=== PATIENT | male | born 1940 | race Caucasian/White ===

== ENCOUNTER 2016-09-28 09:41 | Outpatient (CLI) | payer MEDICARE ==
[2016-09-28 09:59] LABS: #Basophils 0.1 thou/uL (0.0-0.2); #Eosinphils 0.3 thou/uL (0.0-0.7); #Lymphocytes 1.9 thou/uL (1.20-3.40); #Monocytes 0.6 thou/uL (0.11-0.59); #Neutrophils 5.7 thou/uL (1.40-6.50); %Basophils 0.9 % (0.0-1.0); %Lymphocytes 22.6 % (21.0-51.0); %Monocytes 7.2 % (0.0-10.0); %Neutrophils 66.3 % (42.0-75.0); Hemoglobin 14.5 g/dL (14.0-18.0); Mean Corpuscular HGB CONC 32.6 g/dL (32.0-36.0); Mean Corpuscular Hemoglobin 30.7 pg (27.0-31.0); Mean Corpuscular Volume 94.1 fl (80.0-94.0); Mean Platelet Volume 9.6 fL (7.4-10.4); Platelet Count 188 thou/uL (130-400); RBC Distribution Width 12.4 % (11.5-14.5); White Blood Cell (WBC) Count 8.5 thou/uL (4.8-10.8)
[2016-09-28 10:14] LABS: ALT (SGPT) 18 U/L (0-55); AST (SGOT) 16 U/L (5-34); Albumin 4.2 g/dL (3.4-4.8); Alkaline Phosphatase 95 U/L (40-150); Anion Gap 18 mmol/L (10-20); BUN (Urea Nitrogen) 11 mg/dL (8.4-25.7); Bilirubin, Total 0.6 mg/dL (0.2-1.2); Calc. Creatinine Clearance 0 mL/min (70-130); Calcium 9.6 mg/dL (7.8-10.44); Carbon Dioxide 21 mmol/L (23-31); Cardiac Risk 3.3 (Less than 4.5); Chloride 109 mmol/L (98-107); Cholesterol 122 mg/dL (< 200 Desired); Estimated GFR-MDRD 79; Glucose 124 mg/dL (83-110); HDL Cholesterol 37 mg/dL (>60 Neg Risk); LDL Cholesterol, Calculated 63 mg/dL; Potassium 4.5 mmol/L (3.5-5.1); Protein, Total 7.2 g/dL (5.8-8.1); Sodium 143 mmol/L (136-145); Triglycerides 110 mg/dL (Less than 150)
[2016-09-28 10:36] LABS: Free T4 (Free Thyroxine) 0.87 ng/dL (0.70-1.48); Thyroid Stimulating Hormone 2.7711 uIU/mL (0.35-4.94)
[2016-09-28 19:19] LABS: Creatinine, Urine 102.21 mg/dL (63-166); Microalbumin Urine Less than 1.0 mg/dL (0.5-50.0); Microalbumin/Creat Ratio 9.8 mg/g (Less than 30)
== END 2016-09-28 09:42 | disposition home or self-care (01) ==
LOC: MADLABBHPM 09:41
PROVIDERS: ATTEND Internal Medicine Cardiovascular Disease
DX: E11.9 Type 2 diabetes mellitus without complications (principal)
CPT/HCPCS: 36415; 80053; 80061; 82043; 83036; 84439; 84443; 85025

== ENCOUNTER 2017-09-07 14:52 | Outpatient (CLI) | payer MEDICARE ==
[2017-09-07 15:01] LABS: #Basophils 0.1 thou/uL (0.0-0.2); #Eosinphils 0.3 thou/uL (0.0-0.7); #Lymphocytes 1.8 thou/uL (1.20-3.40); #Monocytes 0.6 thou/uL (0.11-0.59); #Neutrophils 4.8 thou/uL (1.40-6.50); %Basophils 0.9 % (0.0-1.0); %Eosinophils 4.1 % (0.0-10.0); %Lymphocytes 23.9 % (21.0-51.0); %Monocytes 7.3 % (0.0-10.0); %Neutrophils 63.8 % (42.0-75.0); Hemoglobin 11.7 g/dL (14.0-18.0); Mean Corpuscular HGB CONC 30.5 g/dL (32.0-36.0); Mean Corpuscular Hemoglobin 27.7 pg (27.0-31.0); Mean Corpuscular Volume 90.9 fl (80.0-94.0); Mean Platelet Volume 8.3 fL (7.4-10.4); Platelet Count 227 thou/uL (130-400); Red Blood Cell (RBC) Count 4.22 mill/uL (4.70-6.10); White Blood Cell (WBC) Count 7.6 thou/uL (4.8-10.8)
[2017-09-07 15:15] LABS: ALT (SGPT) 9 U/L (8-55); AST (SGOT) 11 U/L (5-34); Albumin 3.9 g/dL (3.4-4.8); Alkaline Phosphatase 142 U/L (40-150); Anion Gap 16 mmol/L (10-20); BUN (Urea Nitrogen) 12 mg/dL (8.4-25.7); Bilirubin, Total 0.4 mg/dL (0.2-1.2); Calc. Creatinine Clearance 0 mL/min (70-130); Calcium 9.3 mg/dL (7.8-10.44); Carbon Dioxide 22 mmol/L (23-31); Chloride 110 mmol/L (98-107); Estimated GFR-MDRD 90; Globulin 3.2 g/dL (2.4-3.5); Glucose 136 mg/dL (83-110); Potassium 4.3 mmol/L (3.5-5.1); Protein, Total 7.1 g/dL (5.8-8.1); Sodium 144 mmol/L (136-145)
[2017-09-07 20:15] LABS: Hemoglobin A1c 6.8 % (4.0-6.0)
== END 2017-09-07 14:53 | disposition home or self-care (01) ==
LOC: MADLABBHPM 14:52
PROVIDERS: ATTEND Family Medicine
DX: T84.020D Dislocation of internal right hip prosthesis, subsequent encounter (principal); E11.9 Type 2 diabetes mellitus without complications
CPT/HCPCS: 36415; 80053; 83036; 85025

== ENCOUNTER 2017-11-15 14:16 | Inpatient (IN) | payer MEDICARE ==
[2017-11-15] MEDS ORDERED: levETIRAcetam 500 MG TAB PO SCH (15:15)
[2017-11-15] MEDS ORDERED: HYDROcodone/Acetaminophen 5/325 mg Tablet PO SCH (19:00)
[2017-11-15] MEDS ORDERED: Polyethylene Glycol 3350 17 GM Packet PO PRN (19:18)
[2017-11-15] MEDS ORDERED: Dextrose 50% Abboject 50 ML SYRINGE SLOW IVP PRN (19:19)
[2017-11-15] MEDS ORDERED: Dextrose 5% in Water 1,000 ML IV PRN (19:19)
[2017-11-15] MEDS: Ferrous Sulfate 325 MG TAB PO SCH (19:47)
[2017-11-15] MEDS: levETIRAcetam 500 MG TAB PO SCH (19:48)
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
[2017-11-16] MEDS: metFORMIN 500 MG TAB PO SCH ×2 (08:41→16:39)
[2017-11-16] MEDS: Tamsulosin HCl 0.4 MG CAP PO SCH (08:41)
[2017-11-16] MEDS: Atorvastatin Calcium 10 MG TAB PO SCH (08:42)
[2017-11-16] MEDS: levETIRAcetam 500 MG TAB PO SCH ×3 (08:42→20:54)
[2017-11-16] MEDS: glipiZIDE 5 MG TAB PO SCH (08:42)
[2017-11-16] MEDS: Aspirin 81 mg Enteric Coated Tablet PO SCH (08:42)
[2017-11-16] MEDS: Ferrous Sulfate 325 MG TAB PO SCH ×2 (08:45→20:55)
[2017-11-17] MEDS: metFORMIN 500 MG TAB PO SCH ×2 (08:06→16:47)
[2017-11-17] MEDS: glipiZIDE 5 MG TAB PO SCH (08:06)
[2017-11-17] MEDS: Aspirin 81 mg Enteric Coated Tablet PO SCH (09:26)
[2017-11-17] MEDS: Ferrous Sulfate 325 MG TAB PO SCH ×2 (09:26→20:03)
[2017-11-17] MEDS: levETIRAcetam 500 MG TAB PO SCH ×3 (09:27→20:03)
[2017-11-17] MEDS: Tamsulosin HCl 0.4 MG CAP PO SCH (09:27)
[2017-11-17] MEDS: Atorvastatin Calcium 10 MG TAB PO SCH (09:31)
[2017-11-18] MEDS: metFORMIN 500 MG TAB PO SCH ×2 (07:38→17:42)
[2017-11-18] MEDS: glipiZIDE 5 MG TAB PO SCH (07:38)
[2017-11-18] MEDS: Atorvastatin Calcium 10 MG TAB PO SCH (08:48)
[2017-11-18] MEDS: Aspirin 81 mg Enteric Coated Tablet PO SCH (08:48)
[2017-11-18] MEDS: Ferrous Sulfate 325 MG TAB PO SCH ×2 (08:50→20:28)
[2017-11-18] MEDS: Tamsulosin HCl 0.4 MG CAP PO SCH (08:51)
[2017-11-18] MEDS: levETIRAcetam 500 MG TAB PO SCH ×3 (08:51→20:28)
[2017-11-18] MEDS ORDERED: Ondansetron ODT 4 MG TAB PO SCH (22:00)
[2017-11-19] MEDS: glipiZIDE 5 MG TAB PO SCH (07:20)
[2017-11-19] MEDS: Aspirin 81 mg Enteric Coated Tablet PO SCH (08:37)
[2017-11-19] MEDS: metFORMIN 500 MG TAB PO SCH ×2 (08:37→16:55)
[2017-11-19] MEDS: levETIRAcetam 500 MG TAB PO SCH ×3 (08:37→20:12)
[2017-11-19] MEDS: Ferrous Sulfate 325 MG TAB PO SCH ×2 (08:38→20:12)
[2017-11-19] MEDS: Atorvastatin Calcium 10 MG TAB PO SCH (08:38)
[2017-11-19] MEDS: Tamsulosin HCl 0.4 MG CAP PO SCH (08:42)
[2017-11-20] MEDS: metFORMIN 500 MG TAB PO SCH ×2 (08:46→17:00)
[2017-11-20] MEDS: Ferrous Sulfate 325 MG TAB PO SCH ×2 (08:46→20:18)
[2017-11-20] MEDS: levETIRAcetam 500 MG TAB PO SCH ×3 (08:46→20:18)
[2017-11-20] MEDS: Tamsulosin HCl 0.4 MG CAP PO SCH (08:46)
[2017-11-20] MEDS: Aspirin 81 mg Enteric Coated Tablet PO SCH (08:46)
[2017-11-20] MEDS: glipiZIDE 5 MG TAB PO SCH (08:46)
[2017-11-20] MEDS: Atorvastatin Calcium 10 MG TAB PO SCH (08:46)
[2017-11-21] MEDS: glipiZIDE 5 MG TAB PO SCH (06:59)
[2017-11-21] MEDS: metFORMIN 500 MG TAB PO SCH ×2 (08:07→16:55)
[2017-11-21] MEDS: Ferrous Sulfate 325 MG TAB PO SCH ×2 (08:07→20:55)
[2017-11-21] MEDS: levETIRAcetam 500 MG TAB PO SCH ×3 (08:08→20:55)
[2017-11-21] MEDS: Aspirin 81 mg Enteric Coated Tablet PO SCH (08:08)
[2017-11-21] MEDS: Atorvastatin Calcium 10 MG TAB PO SCH (08:08)
[2017-11-21] MEDS: Tamsulosin HCl 0.4 MG CAP PO SCH (08:08)
[2017-11-22 05:18] LABS: Eosinophils 2 % (0-10); Hemoglobin 10.9 g/dL (14.0-18.0); Lymphocytes 17 % (21-51); MDiff Complete? YES; Mean Corpuscular HGB CONC 32.4 g/dL (32.0-36.0); Mean Corpuscular Hemoglobin 28.7 pg (27.0-31.0); Mean Corpuscular Volume 88.5 fl (80.0-94.0); Mean Platelet Volume 6.7 fL (7.4-10.4); Monocytes 7 % (0-10); Neutrophil 71 % (42-75); PLT Morphology Comment Appears Adequate; Platelet Count 318 thou/uL (130-400); RBC Distribution Width 14.9 % (11.5-14.5); Reactive Lymphocytes 3 % (0-10); White Blood Cell (WBC) Count 9.1 thou/uL (4.8-10.8)
[2017-11-22 05:25] LABS: ALT (SGPT) 13 U/L (8-55); AST (SGOT) 10 U/L (5-34); Albumin 3.4 g/dL (3.4-4.8); Alkaline Phosphatase 111 U/L (40-150); Anion Gap 15 mmol/L (10-20); BUN (Urea Nitrogen) 15 mg/dL (8.4-25.7); Bilirubin, Total 0.5 mg/dL (0.2-1.2); Calc. Creatinine Clearance 86 mL/min (70-130); Calcium 9.3 mg/dL (7.8-10.44); Carbon Dioxide 21 mmol/L (23-31); Chloride 112 mmol/L (98-107); Estimated GFR-MDRD 88; Globulin 3.1 g/dL (2.4-3.5); Glucose 113 mg/dL (83-110); Potassium 4.4 mmol/L (3.5-5.1); Protein, Total 6.5 g/dL (5.8-8.1); Sodium 144 mmol/L (136-145)
[2017-11-22] MEDS: Tamsulosin HCl 0.4 MG CAP PO SCH (08:48)
[2017-11-22] MEDS: levETIRAcetam 500 MG TAB PO SCH ×3 (08:49→20:59)
[2017-11-22] MEDS: Ferrous Sulfate 325 MG TAB PO SCH ×2 (08:49→20:59)
[2017-11-22] MEDS: Aspirin 81 mg Enteric Coated Tablet PO SCH (08:49)
[2017-11-22] MEDS: Atorvastatin Calcium 10 MG TAB PO SCH (08:49)
[2017-11-22] MEDS: metFORMIN 500 MG TAB PO SCH ×2 (08:49→17:11)
[2017-11-22] MEDS: glipiZIDE 5 MG TAB PO SCH (08:49)
[2017-11-23] MEDS: glipiZIDE 5 MG TAB PO SCH (07:30)
[2017-11-23] MEDS: metFORMIN 500 MG TAB PO SCH ×2 (08:50→17:27)
[2017-11-23] MEDS: Atorvastatin Calcium 10 MG TAB PO SCH (08:50)
[2017-11-23] MEDS: Aspirin 81 mg Enteric Coated Tablet PO SCH (08:50)
[2017-11-23] MEDS: Ferrous Sulfate 325 MG TAB PO SCH ×2 (08:53→20:40)
[2017-11-23] MEDS: Tamsulosin HCl 0.4 MG CAP PO SCH (08:53)
[2017-11-23] MEDS: levETIRAcetam 500 MG TAB PO SCH ×3 (08:53→20:39)
[2017-11-23] MEDS: HYDROcodone/Acetaminophen 5/325 mg Tablet PO PRN (23:41)
[2017-11-24] MEDS: Atorvastatin Calcium 10 MG TAB PO SCH (09:15)
[2017-11-24] MEDS: Aspirin 81 mg Enteric Coated Tablet PO SCH (09:16)
[2017-11-24] MEDS: metFORMIN 500 MG TAB PO SCH ×2 (09:16→17:08)
[2017-11-24] MEDS: levETIRAcetam 500 MG TAB PO SCH ×3 (09:16→20:41)
[2017-11-24] MEDS: Ferrous Sulfate 325 MG TAB PO SCH ×2 (09:16→20:42)
[2017-11-24] MEDS: glipiZIDE 5 MG TAB PO SCH (09:16)
[2017-11-24] MEDS: Tamsulosin HCl 0.4 MG CAP PO SCH (09:16)
[2017-11-25] MEDS: HYDROcodone/Acetaminophen 5/325 mg Tablet PO PRN (03:50)
[2017-11-25] MEDS: Tamsulosin HCl 0.4 MG CAP PO SCH (08:22)
[2017-11-25] MEDS: glipiZIDE 5 MG TAB PO SCH (08:22)
[2017-11-25] MEDS: Atorvastatin Calcium 10 MG TAB PO SCH (08:22)
[2017-11-25] MEDS: Aspirin 81 mg Enteric Coated Tablet PO SCH (08:22)
[2017-11-25] MEDS: levETIRAcetam 500 MG TAB PO SCH ×3 (08:23→20:18)
[2017-11-25] MEDS: metFORMIN 500 MG TAB PO SCH ×2 (08:23→17:04)
[2017-11-25] MEDS: Ferrous Sulfate 325 MG TAB PO SCH ×3 (08:23→20:20)
[2017-11-25] MEDS ORDERED: Polyethylene Glycol 3350 17 GM Packet PO PRN (13:15)
[2017-11-26] MEDS: Ferrous Sulfate 325 MG TAB PO SCH ×2 (08:13→20:26)
[2017-11-26] MEDS: Aspirin 81 mg Enteric Coated Tablet PO SCH (08:14)
[2017-11-26] MEDS: Tamsulosin HCl 0.4 MG CAP PO SCH (08:14)
[2017-11-26] MEDS: metFORMIN 500 MG TAB PO SCH ×2 (08:15→17:30)
[2017-11-26] MEDS: glipiZIDE 5 MG TAB PO SCH (08:15)
[2017-11-26] MEDS: Atorvastatin Calcium 10 MG TAB PO SCH (08:16)
[2017-11-26] MEDS: levETIRAcetam 500 MG TAB PO SCH ×3 (08:16→20:23)
[2017-11-26] MEDS: HumaLOG 300 UNITS/3 ML VIAL SC PRN (16:43)
[2017-11-26] MEDS ORDERED: HumaLOG 300 UNITS/3 ML VIAL SC PRN (20:44)
[2017-11-26] MEDS: Acetaminophen 325 MG TAB PO PRN (22:18)
[2017-11-27] MEDS: Atorvastatin Calcium 10 MG TAB PO SCH (08:13)
[2017-11-27] MEDS: metFORMIN 500 MG TAB PO SCH ×2 (08:13→16:35)
[2017-11-27] MEDS: glipiZIDE 5 MG TAB PO SCH (08:13)
[2017-11-27] MEDS: Aspirin 81 mg Enteric Coated Tablet PO SCH (08:13)
[2017-11-27] MEDS: Ferrous Sulfate 325 MG TAB PO SCH ×2 (08:14→21:27)
[2017-11-27] MEDS: Tamsulosin HCl 0.4 MG CAP PO SCH (08:14)
[2017-11-27] MEDS: levETIRAcetam 500 MG TAB PO SCH ×3 (08:14→21:27)
[2017-11-28] MEDS: glipiZIDE 5 MG TAB PO SCH (07:35)
[2017-11-28] MEDS: Aspirin 81 mg Enteric Coated Tablet PO SCH (08:17)
[2017-11-28] MEDS: Ferrous Sulfate 325 MG TAB PO SCH ×2 (08:17→20:26)
[2017-11-28] MEDS: levETIRAcetam 500 MG TAB PO SCH ×3 (08:17→20:25)
[2017-11-28] MEDS: Tamsulosin HCl 0.4 MG CAP PO SCH (08:17)
[2017-11-28] MEDS: metFORMIN 500 MG TAB PO SCH ×2 (08:18→16:36)
[2017-11-28] MEDS: Atorvastatin Calcium 10 MG TAB PO SCH (08:18)
[2017-11-29] MEDS: Acetaminophen 325 MG TAB PO PRN ×2 (00:15→22:05)
[2017-11-29] MEDS: glipiZIDE 5 MG TAB PO SCH (08:31)
[2017-11-29] MEDS: Tamsulosin HCl 0.4 MG CAP PO SCH (08:31)
[2017-11-29] MEDS: Aspirin 81 mg Enteric Coated Tablet PO SCH (08:31)
[2017-11-29] MEDS: Atorvastatin Calcium 10 MG TAB PO SCH (08:32)
[2017-11-29] MEDS: Ferrous Sulfate 325 MG TAB PO SCH ×2 (08:32→20:33)
[2017-11-29] MEDS: metFORMIN 500 MG TAB PO SCH ×2 (08:32→17:04)
[2017-11-29] MEDS: levETIRAcetam 500 MG TAB PO SCH ×3 (08:32→20:33)
[2017-11-30] MEDS: levETIRAcetam 500 MG TAB PO SCH ×3 (08:21→20:43)
[2017-11-30] MEDS: Ferrous Sulfate 325 MG TAB PO SCH ×2 (08:21→20:43)
[2017-11-30] MEDS: glipiZIDE 5 MG TAB PO SCH (08:21)
[2017-11-30] MEDS: HumaLOG 300 UNITS/3 ML VIAL SC PRN (08:22)
[2017-11-30] MEDS: metFORMIN 500 MG TAB PO SCH ×2 (08:22→17:09)
[2017-11-30] MEDS: Tamsulosin HCl 0.4 MG CAP PO SCH (08:22)
[2017-11-30] MEDS: Atorvastatin Calcium 10 MG TAB PO SCH (08:22)
[2017-11-30] MEDS: Aspirin 81 mg Enteric Coated Tablet PO SCH (08:22)
[2017-11-30] MEDS: Acetaminophen 325 MG TAB PO PRN (20:43)
[2017-12-01] MEDS: HumaLOG 300 UNITS/3 ML VIAL SC PRN (07:25)
[2017-12-01] MEDS: metFORMIN 500 MG TAB PO SCH ×2 (07:26→17:00)
[2017-12-01] MEDS: glipiZIDE 5 MG TAB PO SCH (07:26)
[2017-12-01] MEDS: Aspirin 81 mg Enteric Coated Tablet PO SCH (08:52)
[2017-12-01] MEDS: Atorvastatin Calcium 10 MG TAB PO SCH (08:52)
[2017-12-01] MEDS: Ferrous Sulfate 325 MG TAB PO SCH ×2 (08:53→20:22)
[2017-12-01] MEDS: Tamsulosin HCl 0.4 MG CAP PO SCH (08:54)
[2017-12-01] MEDS: levETIRAcetam 500 MG TAB PO SCH ×3 (08:54→20:22)
[2017-12-02] MEDS: Acetaminophen 325 MG TAB PO PRN (01:16)
[2017-12-02] MEDS: metFORMIN 500 MG TAB PO SCH ×2 (07:21→17:00)
[2017-12-02] MEDS: glipiZIDE 5 MG TAB PO SCH (07:21)
[2017-12-02] MEDS: Aspirin 81 mg Enteric Coated Tablet PO SCH (08:44)
[2017-12-02] MEDS: Atorvastatin Calcium 10 MG TAB PO SCH (08:44)
[2017-12-02] MEDS: Ferrous Sulfate 325 MG TAB PO SCH ×2 (08:45→20:14)
[2017-12-02] MEDS: Tamsulosin HCl 0.4 MG CAP PO SCH (08:46)
[2017-12-02] MEDS: levETIRAcetam 500 MG TAB PO SCH ×3 (08:46→20:14)
[2017-12-03] MEDS: Atorvastatin Calcium 10 MG TAB PO SCH (08:24)
[2017-12-03] MEDS: Aspirin 81 mg Enteric Coated Tablet PO SCH (08:24)
[2017-12-03] MEDS: glipiZIDE 5 MG TAB PO SCH (08:24)
[2017-12-03] MEDS: metFORMIN 500 MG TAB PO SCH ×2 (08:24→17:29)
[2017-12-03] MEDS: Ferrous Sulfate 325 MG TAB PO SCH ×2 (08:25→20:36)
[2017-12-03] MEDS: Tamsulosin HCl 0.4 MG CAP PO SCH (08:25)
[2017-12-03] MEDS: levETIRAcetam 500 MG TAB PO SCH ×3 (08:25→20:36)
[2017-12-03] MEDS: HumaLOG 300 UNITS/3 ML VIAL SC PRN (11:39)
[2017-12-03 19:13] VITALS: BMI 24.7
[2017-12-04] MEDS: Atorvastatin Calcium 10 MG TAB PO SCH (08:23)
[2017-12-04] MEDS: levETIRAcetam 500 MG TAB PO SCH ×3 (08:24→20:28)
[2017-12-04] MEDS: glipiZIDE 5 MG TAB PO SCH (08:24)
[2017-12-04] MEDS: metFORMIN 500 MG TAB PO SCH ×2 (08:24→17:02)
[2017-12-04] MEDS: Aspirin 81 mg Enteric Coated Tablet PO SCH (08:24)
[2017-12-04] MEDS: Tamsulosin HCl 0.4 MG CAP PO SCH (08:24)
[2017-12-04] MEDS: Ferrous Sulfate 325 MG TAB PO SCH ×2 (08:25→20:28)
[2017-12-05] MEDS: levETIRAcetam 500 MG TAB PO SCH ×3 (08:01→20:16)
[2017-12-05] MEDS: Atorvastatin Calcium 10 MG TAB PO SCH (08:01)
[2017-12-05] MEDS: Aspirin 81 mg Enteric Coated Tablet PO SCH (08:01)
[2017-12-05] MEDS: Tamsulosin HCl 0.4 MG CAP PO SCH (08:01)
[2017-12-05] MEDS: metFORMIN 500 MG TAB PO SCH ×2 (08:01→17:10)
[2017-12-05] MEDS: Ferrous Sulfate 325 MG TAB PO SCH ×2 (08:01→20:16)
[2017-12-05] MEDS: glipiZIDE 5 MG TAB PO SCH (08:01)
[2017-12-06 06:53] VITALS: BP 120/56; TEMP 97.5
[2017-12-06] MEDS: glipiZIDE 5 MG TAB PO SCH (07:23)
[2017-12-06] MEDS: Atorvastatin Calcium 10 MG TAB PO SCH (08:06)
[2017-12-06] MEDS: Ferrous Sulfate 325 MG TAB PO SCH (08:07)
[2017-12-06] MEDS: Tamsulosin HCl 0.4 MG CAP PO SCH (08:07)
[2017-12-06] MEDS: Aspirin 81 mg Enteric Coated Tablet PO SCH (08:07)
[2017-12-06] MEDS: metFORMIN 500 MG TAB PO SCH (08:07)
[2017-12-06] MEDS: levETIRAcetam 500 MG TAB PO SCH (08:07)
--- NOTE | 2017-12-11 23:50 | DIS ---
DATE OF ADMISSION: 11/15/2017 DATE OF DISCHARGE: 12/06/2017 ATTENDING/PRIMARY CARE PHYSICIAN: Xena Perea M.D. ORTHOPEDIC: Mateo Romano M.D. REASON FOR ADMISSION: Skilled rehab in [facility] after total hip replacement. DISPOSITION: Home. CONDITION ON DISCHARGE: Stable. HOME MEDICATIONS: Aspirin 81 mg p.o. daily, atorvastatin 80 mg p.o. daily, ferrous sulfate 325 mg p.o. b.i.d., glipizide 5 mg before meals, metformin 500 mg p.o. b.i.d., and tamsulosin 0.4 mg p.o. daily. DIET: AHA diet. ACTIVITIES: Ad-christelle, to use rolling walker at all times. Fall precautions. FOLLOWUP: 1. Follow up with Dr. Perea in 1-2 weeks, sooner with concerns. 2. Follow up with Dr. Romano in 4 weeks or as previously scheduled. 3. Seizure precautions. 4. Fall precautions. 5. Follow up with [facility] Outpatient Therapy per request. FINAL DIAGNOSES: 1. Deconditioning. 2. Status post revision of right total hip replacement on 11/12/2017 secondary to posterior dislocation of the right hip with fracture of the posterior portion of the polyethylene liner. 3. Acute anemia secondary to blood loss, stable. 4. Unsteady gait. 5. History of falls. SECONDARY DIAGNOSES: 1. Diabetes, type 2, well controlled, non-insulin requiring. 2. Seizure disorder, stable. 3. Benign prostatic hypertrophy. 4. Hypoalbuminemia. HISTORY OF PRESENT ILLNESS AND HOSPITAL COURSE: Mr. Jett is a very pleasant 77-year-old male with history of diabetes, type 2; seizure disorder; BPH; and history of multiple previous right total hip replacement and revisions x2. The patient reports that after his last right total hip replacement and revision in 07/03/2017 secondary to redislocation of the right previous total hip replacement, he did fine at home after skilled rehab. He has been walking around without use of assistive device and no issues with pain. He was in his baseline functional activities until 11/11/2017. He reports that while at home he tried to stand up and had some significant right hip pain when he heard a clunk. Since then he was unable to walk and had significant pain. The patient was sent to the ER, where he was noted to have right hip prosthesis dislocation. He subsequently underwent revision of the right hip again this time replacing with a polyethylene liner, femoral head and reapplying constrained design with open reduction of the dislocation under general anesthesia. This was done by Dr. Romano. The patient had an unremarkable postoperative course. He was started on iron supplement for anemia secondary from acute blood loss. He has been ambulatory without significant pain on full weightbearing prior to transfer to [place]. During his rehab course, there was a report of marked right knee pain/leg pain. When patient was tried on [place], the patient had significant intolerance to the medications. The patient followed up with Dr. Romano 2 weeks after for staple removal. During that time, the patient received a steroid injection in his right knee and did well. His leg brace was likewise discontinued at that time and has been doing fine since. He was walking 400 feet x2 using rolling walker prior to discharge. Per therapy, the patient had almost reached his therapy goal, but not completely. Patient then was adamant to go home. He was offered to continue therapy at home versus outpatient therapy. The patient reports that he would rather have the outpatient therapy in [facility] as he was comfortable with the therapists here. Thus, outpatient therapy was scheduled prior to discharge. Vital signs prior to discharge, temperature 97.5, pulse 73, respirations 18, O2 sats 96%, and blood pressure 120/56. Weight 176 pounds and 12 ounces. Time spent on this discharge 32 minutes, on examining the patient and coordinating care. MIKKI
== END 2017-12-06 13:50 | disposition home or self-care (01) | DRG 560 ==
LOC: MADMS 14:16
PROVIDERS: ADMIT Family Medicine; ATTEND Family Medicine
DX: Z47.1 Aftercare following joint replacement surgery (principal); D62 Acute posthemorrhagic anemia; E88.09 Other disorders of plasma-protein metabolism, not elsewhere classified; E11.9 Type 2 diabetes mellitus without complications; D63.8 Anemia in other chronic diseases classified elsewhere; I48.2 Chronic atrial fibrillation; G40.909 Epilepsy, unspecified, not intractable, without status epilepticus; E78.5 Hyperlipidemia, unspecified; R53.1 Weakness; Z96.641 Presence of right artificial hip joint; N40.0 Benign prostatic hyperplasia without lower urinary tract symptoms; Z86.73 Personal history of transient ischemic attack (TIA), and cerebral infarction without residual deficits; Z85.820 Personal history of malignant melanoma of skin; I35.1 Nonrheumatic aortic (valve) insufficiency; I10 Essential (primary) hypertension; Z91.81 History of falling; Z88.8 Allergy status to other drugs, medicaments and biological substances; Z79.82 Long term (current) use of aspirin; Z79.84 Long term (current) use of oral hypoglycemic drugs; R26.81 Unsteadiness on feet; K25.9 Gastric ulcer, unspecified as acute or chronic, without hemorrhage or perforation; Z79.01 Long term (current) use of anticoagulants; Z66 Do not resuscitate
CPT/HCPCS: 36415; 36416; 80053; 80177; 85025; G8978-GP-CL; G8979-GP-CI; G8987-GO-CL; G8988-GO-CJ; Q0162

== ENCOUNTER 2018-02-26 12:03 | Outpatient (CLI) | payer MEDICARE ==
[2018-02-26 13:04] LABS: #Basophils 0.1 thou/uL (0.0-0.2); #Eosinphils 0.2 thou/uL (0.0-0.7); #Monocytes 0.7 thou/uL (0.11-0.59); #Neutrophils 4.8 thou/uL (1.40-6.50); %Basophils 0.7 % (0.0-1.0); %Eosinophils 3.1 % (0.0-10.0); %Lymphocytes 25.6 % (21.0-51.0); %Monocytes 8.6 % (0.0-10.0); %Neutrophils 62.1 % (42.0-75.0); Hemoglobin 12.4 g/dL (14.0-18.0); Mean Corpuscular HGB CONC 32.2 g/dL (32.0-36.0); Mean Corpuscular Hemoglobin 28.1 pg (27.0-31.0); Mean Corpuscular Volume 87.3 fL (78.0-98.0); Mean Platelet Volume 8.9 fL (7.4-10.4); Platelet Count 193 thou/uL (130-400); RBC Distribution Width 13.5 % (11.5-14.5); Red Blood Cell (RBC) Count 4.42 mill/uL (4.70-6.10); White Blood Cell (WBC) Count 7.7 thou/uL (4.8-10.8)
[2018-02-26 13:41] LABS: Thyroid Stimulating Hormone 2.5564 uIU/mL (0.35-4.94)
[2018-02-26 17:22] LABS: Ferritin 92.48 ng/mL (22-322)
== END 2018-02-26 12:04 | disposition home or self-care (01) ==
LOC: MADLABSP 12:03
PROVIDERS: ATTEND Family Medicine
DX: I35.2 Nonrheumatic aortic (valve) stenosis with insufficiency (principal); I10 Essential (primary) hypertension
CPT/HCPCS: 82728; 83540; 84443; 85025

== ENCOUNTER 2018-08-26 13:11 | Outpatient (CLI) | payer MEDICARE ==
[2018-08-26 13:35] LABS: #Basophils 0.1 thou/uL (0.0-0.2); #Eosinphils 0.2 thou/uL (0.0-0.7); #Lymphocytes 2.1 thou/uL (1.20-3.40); #Monocytes 0.6 thou/uL (0.11-0.59); #Neutrophils 5.9 thou/uL (1.40-6.50); %Basophils 0.7 % (0.0-1.0); %Eosinophils 1.8 % (0.0-10.0); %Lymphocytes 23.8 % (21.0-51.0); %Monocytes 7.2 % (0.0-10.0); %Neutrophils 66.4 % (42.0-75.0); Hemoglobin 14.5 g/dL (14.0-18.0); Mean Corpuscular HGB CONC 32.6 g/dL (32.0-36.0); Mean Corpuscular Hemoglobin 30.3 pg (27.0-31.0); Mean Corpuscular Volume 92.9 fL (78.0-98.0); Mean Platelet Volume 9.1 fL (7.4-10.4); Platelet Count 178 thou/uL (130-400); Red Blood Cell (RBC) Count 4.78 mill/uL (4.70-6.10); White Blood Cell (WBC) Count 8.8 thou/uL (4.8-10.8)
[2018-08-26 13:51] LABS: Cardiac Risk 3.4 (Less than 4.5)
[2018-08-26 21:38] LABS: Hemoglobin A1c 6.9 % (4.0-6.0)
== END 2018-08-26 13:12 | disposition home or self-care (01) ==
LOC: MADLABBHPM 13:11
PROVIDERS: ATTEND Family Medicine
DX: D62 Acute posthemorrhagic anemia (principal); E78.2 Mixed hyperlipidemia; E11.65 Type 2 diabetes mellitus with hyperglycemia
CPT/HCPCS: 36415; 80061; 83036; 83540; 85025

== ENCOUNTER 2020-07-27 09:28 | Outpatient (CLI) | payer MEDICARE ==
[2020-07-27 17:42] LABS: #Basophils 0.1 thou/uL (0.0-0.2); #Eosinphils 0.7 thou/uL (0.0-0.7); #Lymphocytes 2.1 thou/uL (1.20-3.40); #Monocytes 0.8 thou/uL (0.11-0.59); #Neutrophils 8.2 thou/uL (1.40-6.50); %Basophils 0.7 % (0.0-1.0); %Eosinophils 5.5 % (0.0-10.0); %Lymphocytes 17.9 % (21.0-51.0); %Monocytes 6.9 % (0.0-10.0); Hemoglobin 10.7 g/dL (14.0-18.0); Mean Corpuscular HGB CONC 30.9 g/dL (32.0-36.0); Mean Corpuscular Hemoglobin 26.3 pg (27.0-31.0); Mean Corpuscular Volume 85.1 fL (78.0-98.0); Mean Platelet Volume 7.1 fL (7.4-10.4); Platelet Count 328 thou/uL (130-400); RBC Distribution Width 14.8 % (11.5-14.5); Red Blood Cell (RBC) Count 4.06 mill/uL (4.70-6.10); White Blood Cell (WBC) Count 11.9 thou/uL (4.8-10.8)
[2020-07-27 19:10] LABS: Iron 40 ug/dL (65-175); Iron Binding Capacity, Total 218 mcg/dL (261-462)
== END 2020-07-27 09:29 | disposition home or self-care (01) ==
LOC: MADLABBHPM 09:28
PROVIDERS: ATTEND Family Medicine
DX: D50.9 Iron deficiency anemia, unspecified (principal)
CPT/HCPCS: 36415; 82728; 83540; 83550; 85025

== ENCOUNTER 2023-07-26 11:25 | Outpatient (CLI) | payer MEDICARE ==
[2023-07-26 11:44] LABS: #Eosinphils 0.1 thou/uL (0.0-0.7); #Lymphocytes 1.3 thou/uL (1.20-3.40); #Monocytes 0.6 thou/uL (0.11-0.59); #Neutrophils 5.2 thou/uL (1.40-6.50); %Basophils 0.4 % (0.0-1.0); %Lymphocytes 17.2 % (21.0-51.0); %Monocytes 8.3 % (0.0-10.0); Hematocrit 33.5 % (42.0-52.0); Hemoglobin 10.4 g/dL (14.0-18.0); Mean Corpuscular HGB CONC 31.2 g/dL (32.0-36.0); Mean Corpuscular Hemoglobin 30.5 pg (27.0-31.0); Mean Platelet Volume 9.3 fL (7.4-10.4); Platelet Count 144 10x3/uL (130-400); RBC Distribution Width 15.5 % (11.5-14.5); Red Blood Cell (RBC) Count 3.42 mill/uL (4.70-6.10); White Blood Cell (WBC) Count 7.2 10x3/uL (4.8-10.8)
[2023-07-26 12:02] LABS: ALT (SGPT) 17 U/L (8-55); AST (SGOT) 18 U/L (5-34); Albumin 4.1 g/dL (3.4-4.8); Alkaline Phosphatase 106 U/L (40-110); Anion Gap 12 mmol/L (10-20); BUN (Urea Nitrogen) 61 mg/dL (8.4-25.7); Bilirubin, Total 0.4 mg/dL (0.2-1.2); Calc. Creatinine Clearance 0 mL/min (70-130); Carbon Dioxide 18 mmol/L (23-31); Chloride 115 mmol/L (98-107); Estimated GFR 60; Globulin 3.6 g/dL (2.4-3.5); Glucose 121 mg/dL (83-110); Protein, Total 7.7 g/dL (5.8-8.1); Sodium 141 mmol/L (136-145)
[2023-07-26 16:02] LABS: Hemoglobin A1c 6.3 % (4.0-6.0)
== END 2023-07-26 11:26 | disposition home or self-care (01) ==
LOC: MADLABBHPM 11:25
PROVIDERS: ATTEND Family Medicine
DX: E03.9 Hypothyroidism, unspecified (principal); D50.9 Iron deficiency anemia, unspecified; E78.2 Mixed hyperlipidemia; R63.4 Abnormal weight loss; Z86.39 Personal history of other endocrine, nutritional and metabolic disease
CPT/HCPCS: 36415; 80053; 83036; 84443; 85025